=== PATIENT | male | born 1940 | race Caucasian/White ===

== ENCOUNTER 2018-02-04 00:49 | Observation (INO) | payer MEDICARE, BC ==
--- NOTE | 2018-02-04 01:33 | EDM.PDOC ---
ED HPI GENERAL MEDICAL PROBLEM - General Chief Complaint: Head Injury Stated Complaint: fall Time Seen by Provider: 02/04/18 01:23 Source of Information: Reports: Patient, EMS, EMS Notes Reviewed, [facility] Records History Limitations: Reports: Altered Mental Status - History of Present Illness INITIAL COMMENTS - FREE TEXT/NARRATIVE: Patient is a 77-year-old gentleman who presents to the emergency department via EMS secondary to unwitnessed fall this evening. Patient is currently a resident at [facility]. Per nursing facility staff, patient was found in an unoccupied room on the floor with injury to face and left shoulder. Patient does have a history of dementia, is baseline confused, and is currently on warfarin. Vital signs stable en route EMS transport to ER. At this time patient denies chest pain, shortness of breath, headache, nausea or vomiting. Onset: Today Location: Reports: Head, Face, Upper Extremity, Left Quality: Reports: Ache Severity: Mild Improves with: Reports: None Worsens with: Reports: Movement Context: Reports: Trauma Associated Symptoms: Reports: Confusion (At baseline) ED ROS GENERAL - Review of Systems Review Of Systems: ROS reveals no pertinent complaints other than HPI. Constitutional: Reports: No Symptoms HEENT: Reports: No Symptoms Respiratory: Reports: No Symptoms Cardiovascular: Reports: No Symptoms Endocrine: Reports: No Symptoms GI/Abdominal: Reports: No Symptoms : Reports: No Symptoms Musculoskeletal: Reports: Neck Pain, Shoulder Pain (Left) Skin: Reports: Bruising (Left shoulder) Neurological: Reports: Confusion (Dementia at baseline) Psychiatric: Reports: No Symptoms Hematologic/Lymphatic: Reports: No Symptoms Immunologic: Reports: No Symptoms ED EXAM, HEAD INJURY - Physical Exam Exam: See Below Exam Limited By: Altered Mental Status (Of chronic nature) General Appearance: Alert, WD/WN, No Apparent Distress Head: Facial Swelling. No: Scalp Lacerations, Scalp Swelling, Scalp Hematoma, Active Bleeding Nexus Criteria: Altered Level of Consciousness. No: Posterior, Midline Cervical Tenderness, Evidence of Intoxication, Focal Neurological Deficit, Painful Distraction Injuries Eyes: Bilateral Eye: Normal Inspection, Other (Ocular movements intact) Ears: Normal External Exam, Normal Canal, Normal TMs. No: Canal Blood, TM Blood Nose: Nasal Swelling, Dried Blood, Other (No laceration). No: Septal Hematoma Throat/Mouth: Normal Inspection, Normal Oropharynx, No Airway Compromise. No: Bleeding, Dental Trauma Neck: Tender Lateral. No: Spinous Processes Tender Respiratory: No Respiratory Distress, Lungs Clear, Normal Breath Sounds, No Accessory Muscle Use, Chest Non-Tender Cardiovascular: Regular Rate, Rhythm, No Murmur GI/Abdominal Exam: Normal Bowel Sounds, Soft, Non-Tender Back Exam: Normal Inspection Extremities: Arm Pain (Left shoulder with anterior and posterior abrasion/ ecchymosis) Neurologic: Normal Mood/Affect, Disoriented x 3 - [place] Coma Score Best Eye Response (Jordan): (4) Open Spontaneously Best Verbal Response (Jordan): (4) Confused Conversation Best Motor Response (Jordan): (6) Obeys Commands Jordan Total: 14 Course - Orders/Labs/Meds Orders: Active Orders 24 hr Category Date Time Status Cervical Spine wo Cont [CT] Stat Exams 02/04/18 01:24 Ordered Head wo Cont [CT] Stat Exams 02/04/18 01:08 Ordered Maxillofacial w/o CM [Max Facial Sinus wo Cont] [CT] Exams 02/04/18 01:06 Ordered Stat Shoulder Comp Lt [CR] Stat Exams 02/04/18 01:24 Ordered - Radiology Interpretation Free Text/Narrative:: Left shoulder x-ray shows no acute fracture or dislocation Discussed results with Dr. Rodríguez, radiology and CT head shows suspect trace subdural hemorrhage. Bilateral nondisplaced nasal bone fractures, nondisplaced right lateral orbit wall fracture. Cervical spine shows degenerative disease without fracture CT Results Date: 02/04/18 - Re-Assessments/Exams Free Text/Narrative Re-Assessment/Exam: 02/04/18 03:22 Patient afebrile, nontoxic appearing, vital signs stable. After discussion with radiology for CT results, patient transfer not required at this time. Edson Perez, nurse practitioner from [facility], was contacted. Case discussed with him and patient will be placed in admit observation status for continued evaluation. Departure - Departure Time of Disposition: 03:25 Disposition: Refer to Observation Condition: Fair Clinical Impression: Subdural hemorrhage, Fracture of orbit Nasal bones, closed fracture Qualifiers: Encounter type: initial encounter Qualified Code(s): S02.2XXA - Fracture of nasal bones, initial encounter for closed fracture - Discharge Information - My Orders Last 24 Hours: My Active Orders 02/04/18 01:06 Maxillofacial w/o CM [Max Facial Sinus wo Cont] [CT] Stat 02/04/18 01:08 Head wo Cont [CT] Stat 02/04/18 01:24 Cervical Spine wo Cont [CT] Stat Shoulder Comp Lt [CR] Stat - Assessment/Plan Last 24 Hours: My Active Orders 02/04/18 01:06 Maxillofacial w/o CM [Max Facial Sinus wo Cont] [CT] Stat 02/04/18 01:08 Head wo Cont [CT] Stat 02/04/18 01:24 Cervical Spine wo Cont [CT] Stat Shoulder Comp Lt [CR] Stat Assessment:: Head injury, suspected subdural hemorrhage, nasal bone fractures Plan: Patient admitted for observation
[2018-02-04 08:25] LABS: CHLORIDE,CL 106 mmol/L (98-115); SODIUM,NA 141 mmol/L (136-145)
[2018-02-04] MEDS ORDERED: Acetaminophen 325 MG Tab PO PRN (11:41)
--- NOTE | 2018-02-04 11:41 | PCM.HP ---
H&P History of Present Illness - General Date of Service: 02/04/18 Admit Problem/Dx: Admission Diagnosis/Problem Admission Diagnosis/Problem Subdural hemorrhage following injury Source of Information: Patient, Provider, RN History Limitations: Reports: Altered Mental Status, Uncooperative Generalized Pain Score (Numeric/FACES): 2 - Related Data Allergies/Adverse Reactions: Allergies Allergy/AdvReac Type Severity Reaction Status Date / Time No Known Drug Allergies Allergy Other Verified 02/04/18 01:48 Home Medications: Home Meds Acetaminophen 650 mg PO Q6H PRN 02/04/18 [History] Aspirin [Halfprin] 81 mg PO DAILY 02/04/18 [History] Cholecalciferol (Vitamin D3) [Vitamin D3] 2,000 unit PO DAILY 02/04/18 [History] Cyanocobalamin (Vitamin B-12) [B-12] 1,000 mcg PO DAILY 02/04/18 [History] Glimepiride 2 mg PO 1800 02/04/18 [History] Glimepiride 4 mg PO DAILY 02/04/18 [History] Ketoconazole [Ketoconazole 2%] 1 applic TOP BID PRN 02/04/18 [History] Mirtazapine 45 mg PO 199902/04/18 [History] Moexipril HCl [Moexipril] 7.5 mg PO DAILY 02/04/18 [History] Omeprazole 20 mg PO 0700 02/04/18 [History] QUEtiapine Fumarate [Seroquel] 800 mg PO 199902/04/18 [History] Rivastigmine [Exelon] 1 patch TD 199902/04/18 [History] Sennosides/Docusate Sodium [Senna Plus Tablet] 1 tab PO BIDMEALS 02/04/18 [ History] Verapamil [Calan] 80 mg PO BID 02/04/18 [History] Warfarin [Coumadin] 5 mg PO 1800 02/04/18 [History] atorvaSTATin [Lipitor] 10 mg PO BEDTIME 02/04/18 [History] metFORMIN [Glucophage] 1,000 mg PO BIDMEALS 02/04/18 [History] Past Medical History Other HEENT History: wears glasses Cardiovascular History: Reports: Afib, Heart Failure, High Cholesterol, Hypertension, Other (See Below) Other Cardiovascular History: rheumatic multiple valve disease Musculoskeletal History: Reports: Fracture Other Musculoskeletal History: right ring finger Neurological History: Reports: Alzheimers Disease, Other (See Below) Other Neuro History: schizo affective disorder Psychiatric History: Reports: Anxiety, Depression, Schizophrenia Endocrine/Metabolic History: Reports: Diabetes, Type II Hematologic History: Reports: Anticoagulation Therapy Oncologic (Cancer) History: Reports: Basal Cell Carcinoma Dermatologic History: Reports: Other (See Below) Other Dermatologic History: basal cell carcinoma right taoism - Past Surgical History HEENT Surgical History: Reports: None Cardiovascular Surgical History: Reports: Valve Replacement Social & Family History - Family History Family Medical History: Unobtainable - Tobacco Use Smoking Status *Q: Former Smoker Packs/Tins Daily: 1 Used Tobacco, but Quit: Yes Month/Year Tobacco Last Used: unknown Second Hand Smoke Exposure: No - Caffeine Use Caffeine Use: Reports: Coffee - Recreational Drug Use Drug Use in Last 12 Months: No H&P Review of Systems - Review of Systems: Review Of Systems: Unable To Obtain (some components ROS not able to obtain,) General: Reports: Decreased Appetite. Denies: Fever, Chills, Malaise, Weakness HEENT: Denies: Headaches, Visual Changes Pulmonary: Denies: Shortness of Breath, Cough Cardiovascular: Reports: No Symptoms Gastrointestinal: Reports: No Symptoms Skin: Reports: Bruising, Erythema, Wound (facial nose A- bruising erythremia to nose), Change in Color Psychiatric: Reports: Confusion, Depression (profound depression), Suicidal Ideation. Denies: Agitation, Hallucinations Neurological: Reports: Confusion, Pre-Existing Deficit. Denies: Dizziness, Headache, Paresthesia, Seizure, Tremors, Change in Speech Hematologic/Lymphatic: Reports: Easy Bleeding, Easy Bruising Exam - Exam Exam: See Below - Vital Signs Vital Signs: Last Vital Signs Temp 98.2 F 02/04/18 06:52 Pulse 70 02/04/18 06:52 Resp 18 02/04/18 06:52 BP 132/68 02/04/18 06:52 Pulse Ox 95 02/04/18 07:00 Weight: 220 lb - Exam Quality Assessment: No: Supplemental Oxygen, Urinary Catheter General: Alert, Cooperative, Other (morbidly depressed,) HEENT: Mucosa Moist & [place], Nares Patent (dry blood noticed nasal cavities bilateral), Posterior Pharynx Clear, Pupils Equal, Pupils Reactive, PERRLA (has full ocular gaze). No: TMs Clear (excessive wax buildup bilaterally) Neck: Supple Lungs: Clear to Auscultation, Normal Respiratory Effort Cardiovascular: Regular Rate, Regular Rhythm GI/Abdominal Exam: Soft (Male) Exam: Deferred Rectal (Males) Exam: Deferred Back Exam: CVA Tenderness (L) Extremities: Non-Tender, No Pedal Edema Skin: Ecchymosis (edema bilateral orbits, swelling, edema to nose nasal septum) - Patient Data Lab Results Last 24 hrs: Laboratory Results - last 24 hr 02/04/18 02/04/18 02/04/18 Range/Units 07:55 07:55 07:55 WBC 7.2 (5.0-10.0) 10^3/uL RBC 3.94 L (4.50-6.00) 10^6/uL Hgb 12.3 L (13.0-17.0) g/dL Hct 37.7 L (40.0-52.0) % MCV 95.7 H (82.0-92.0) fL MCH 31.3 H (27.0-31.0) pg MCHC 32.7 (32.0-36.0) g/dL RDW 13.6 (11.5-14.5) % Plt Count 147 L (150-300) 10^3/uL MPV 8.1 (7.4-10.4) fL Neut % (Auto) 68.6 (50.0-70.0) % Lymph % (Auto) 20.3 (20.0-40.0) % Hayes % (Auto) 8.4 H (2.0-8.0) % Eos % (Auto) 2.6 (1.0-3.0) % Baso % (Auto) 0.1 (0.0-1.0) % Neut # (Auto) 4.9 (2.5-7.0) 10^3/uL Lymph # (Auto) 1.5 (1.0-4.0) 10^3/uL Hayes # (Auto) 0.6 (0.1-0.8) 10^3/uL Eos # (Auto) 0.2 (0.1-0.3) 10^3/uL Baso # (Auto) 0.0 (0.0-0.1) 10^3/uL PT 22.8 H (8.9-11.4) SEC INR 2.3 H (0.9-1.1) Sodium 141 (136-145) mmol/L Potassium 3.7 (3.3-5.3) mmol/L Chloride 106 (98-115) mmol/L Carbon Dioxide 25.3 (21.0-32.0) mmol/L BUN 15 (6-25) mg/dL Creatinine 0.88 (0.51-1.17) mg/dL Est Cr Clr Drug Dosing 85.35 mL/min Estimated GFR (MDRD) > 60 mL/min Glucose 136 H (70-110) mg/dL Calcium 8.5 L (8.7-10.3) mg/dL Total Bilirubin 0.5 (0.2-1.0) mg/dL AST 21 (15-37) U/L ALT 21 (12-78) U/L Alkaline Phosphatase 83 (46-116) IU/L Total Protein 6.0 L (6.4-8.2) g/dL Albumin 3.02 (3.00-4.80) g/dL Result Diagrams: 02/04/18 07:55 02/04/18 07:55 Problem List Initiated/Reviewed/Updated: Yes Orders Last 24hrs: Active Orders 24 hr Category Date Time Status Patient Status [ADT] Routine ADT 02/04/18 03:29 Ordered Activity as Tolerated [RC] .Routine Care 02/04/18 04:19 Active Oxygen Therapy [RC] PRN Care 02/04/18 03:29 Active VTE/DVT Education [RC] PER UNIT ROUTINE Care 02/04/18 03:29 Active Vital Signs [RC] 0300,0700,1100,1500,1900,2300 Care 02/04/18 03:29 Active [place] [employer] Diet [DIET] Diet 02/04/18 Breakfast Active Resuscitation Status Routine Resus Stat 02/04/18 03:29 Ordered Assessment/Plan Comment:: History of present illness This 77-year-old gentleman was admitted very early this morning he sustained a fall. He is a resident long-term care facility in EMS responded to the patient' s room after he sustained unwitnessed fall. she was found in an unoccupied room on the floor with significant injury to his face and left shoulder. to much coaching he will tell you that he tripped on something. patient does have a confused baseline with significant history of dementia and psychiatric illness include schizophrenia, anxiety, depression. Patient is on Coumadin and was admitted due to possible small right-sided subdural hematoma, and bilateral nasal fractures CT facial bones Acute facial bone fractures, Displaced nasal boneBreasts right orbital floor fracture Nondisplaced fracture Right zygomatic arch nondisplaced right lateral orbital wall fracture Significant soft tissue contusions/nasal bone fracture primary hospital problems Possible subdural hematoma without mass effect or hydrocephalus Bilateral nasal fractures, stable, nondisplaced high risk anticoagulation medication Chronic problems Atrial fibrillation T2DM HTN HLD Depression, profound DDD, with spondylolisthesis, cervical, History of anxiety vitamin D deficiency History 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 Consulted with oncall maxofacial surgery and agree with plan
[2018-02-04] MEDS ORDERED: Haloperidol Lactate 5 MG/ML SDV IM PRN (18:45)
[2018-02-04] MEDS ORDERED: Mirtazapine 15 MG Tab PO SCH (20:00)
[2018-02-04] MEDS ORDERED: QUEtiapine 100 MG Tab PO SCH (20:00)
[2018-02-04] MEDS ORDERED: RIVASTIGMINE 13.3 MG/24 HR TOP SCH (20:00)
[2018-02-04] MEDS: Verapamil 80 MG Tab PO SCH (20:01)
[2018-02-05] MEDS: Omeprazole 20 MG Cap.CR PO SCH ×2 (06:00→08:05)
[2018-02-05] MEDS: Verapamil 80 MG Tab PO SCH (08:04)
[2018-02-05] MEDS ORDERED: Cyanocobalamin (Vitamin B12) 500 MCG Tab PO SCH (09:00)
--- NOTE | 2018-02-06 07:58 | DISCH ---
ADMITTING DIAGNOSIS: Facial trauma with facial fractures and possible subdural bleed. FINAL DIAGNOSIS: CT of the head shows no subdural bleed. The patient does have multiple facial fractures with a broken nose. PROCEDURES: No procedures were performed while in the hospital. BRIEF HISTORY AND ESSENTIAL FINDINGS: The patient does have a long history of psychiatric disorders. He is in the Alzheimer's unit at [facility] in [place], [place]. The patient apparently had fallen face first at the custodial and landed on his face sustaining facial fractures. The patient is on Coumadin therapy for atrial fibrillation and heart valve replacement surgery. The patient was brought to the [facility] Emergency Room for further evaluation and treatment. It was found that he had orbital fractures to his face and suspicious for subdural bleed on the CAT scan. The patient's repeat CAT scan that was obtained on day of discharge, 02/05/2018, showed negative exam. SIGNIFICANT LABS, X-RAYS, AND CONSULTATION FINDINGS: Maxillofacial was consulted in [facility], and they recommended that the patient keep ice on his face. No blowing his nose. No surgical candidate at this time. Facial CT showed that the patient has acute facial bone fractures, he has displaced nasal bone breast right orbital floor fracture, nondisplaced fracture of the right zygomatic arch, nondisplaced right lateral orbital wall fracture along with soft tissue contusions of the nasal bone fracture. Repeat CAT scan obtained on the day of discharge, 02/05/2018. Scan showed yesterday there was a question of a small right-sided subdural hematoma along the tentorium. This is not seen today. Currently, there is no definite evidence of intracranial hemorrhage. Impression reads negative exam. The patient's lab work that was obtained while in the hospital: In the emergency room, the patient's CBC showed a white count within normal range at 7.2, hemoglobin slightly low at 12.3, platelet count was 147. The patient's INR was 2.3. The patient's chemistry panel was unremarkable except for calcium was slightly low at 8.5, total protein was low at 6.0. Repeat INR on day of discharge after Coumadin was held was 1.7. COURSE IN THE HOSPITAL WITH COMPLICATIONS IF ANY: The patient's face is very edematous. His nose is very large and swollen and it is offset. The patient has lots of facial swelling and bruising. Ice was applied. Maxillofacial was consulted. They suggested that the patient do not blow his nose, keep ice to his face as much as possible. The patient is very depressed. He has many statements about that he is already and just put him in a dumpster or just bury him in the back of the hospital. He is very depressed. This is his baseline, but the patient is able to look to the left and right and focus. He denies any blurred vision or headache. CONDITION, TREATMENT, AND FINAL DECISION ON DISCHARGE AND PROGNOSIS: 1. Multiple facial fractures. Plan: Ice to the face as much as possible. No blowing the nose. The patient will be seen on rounds at the custodial. The patient's CAT scan on day of discharge was cleared of the head, negative exam per Radiology. 2. History of heart valve replacement along with chronic atrial fibrillation. We are going to restart the patient back on his Coumadin 5 mg daily. We will have him follow up on custodial rounds, probably Friday of next week or Friday. Repeat INR will need to be obtained at that time. 3. Multiple psychiatric illnesses. Continue the patient on Remeron 45 mg at bedtime along with Seroquel 800 mg. 4. History of hypertension. Continue the patient on verapamil 80 mg twice a day along with Univasc 7.5 mg daily. 5. History of gastroesophageal reflux disease. Continue the patient on omeprazole 20 mg daily in the morning. 6. History of vitamin B12 deficiency. Continue with vitamin B12. We are going to send the patient home back on his Coumadin 5 mg daily. We will recheck an INR most likely on Friday to see how it is going. The patient will need to be followed up in the custodial early next week. 7. Facial fractures. The only thing for this at this time would be ice and the patient not to blow his nose. Those were the recommendations when consulted with Maxillofacial. /[id number]/MODL
== END 2018-02-05 10:50 ==
LOC: KA.ED 00:49 → KA.MS 03:30
PROVIDERS: ADMIT Physician Assistant Surgical; ATTEND Nurse Practitioner Family
DX: S02.2XXA Fracture of nasal bones, initial encounter for closed fracture (principal); S02.31XA Fracture of orbital floor, right side, initial encounter for closed fracture; S02.40EA Zygomatic fracture, right side, initial encounter for closed fracture; G30.9 Alzheimer's disease, unspecified; F02.80 Dementia in other diseases classified elsewhere, unspecified severity, without behavioral disturbance, psychotic disturbance, mood disturbance, and anxiety; I48.2 Chronic atrial fibrillation; I11.0 Hypertensive heart disease with heart failure; I50.9 Heart failure, unspecified; K21.9 Gastro-esophageal reflux disease without esophagitis; E53.8 Deficiency of other specified B group vitamins; E78.00 Pure hypercholesterolemia, unspecified; F41.9 Anxiety disorder, unspecified; F32.9 Major depressive disorder, single episode, unspecified; F20.9 Schizophrenia, unspecified; E11.9 Type 2 diabetes mellitus without complications; M43.12 Spondylolisthesis, cervical region; W19.XXXA Unspecified fall, initial encounter; Z79.01 Long term (current) use of anticoagulants; Z95.2 Presence of prosthetic heart valve; Z79.82 Long term (current) use of aspirin; Z79.899 Other long term (current) drug therapy; Z79.84 Long term (current) use of oral hypoglycemic drugs; Z85.828 Personal history of other malignant neoplasm of skin; Z87.891 Personal history of nicotine dependence
CPT/HCPCS: 36415; 36416; 70450; 70486; 72125; 73030-LT; 80053; 85025; 85610; 99285; A9270-GY; G0378